=== PATIENT | male | born 1990 | race Caucasian/White ===

== ENCOUNTER 2017-12-12 23:28 | Inpatient (IN) | payer OTHER, MEDICAID ==
[2017-12-13] MEDS: ONDANSETRON 4 MG INJ IV ×3 (00:41→20:55)
[2017-12-13] MEDS: BELLADONNA/PHENOBARBITAL TAB PO (00:41)
[2017-12-13] MEDS: KETOROLAC 15 MG INJ IV (00:42)
[2017-12-13] MEDS: SOD CHLORIDE 0.9% 1,000 ML IV ×4 (00:42→19:08)
[2017-12-13] MEDS: LIDOCAINE/MYLANTA 40 ML BTL PO (00:42)
[2017-12-13 00:58] LABS: ADD MAN DIFF? NO
[2017-12-13 00:59] LABS: BASOPHIL # 0.1 10^3/ul (0.0-0.1); BASOPHILS % 0.3 % (0.0-2.0); EOSINOPHILS # 0.2 10^3/ul (0.0-0.5); EOSINOPHILS % 0.7 % (0.0-7.0); HEMATOCRIT 37.2 % (42.0-52.0); HEMOGLOBIN 11.6 g/dl (14.0-18.0); LYMPHOCYTES # 3.3 10^3/ul (0.8-2.9); LYMPHOCYTES % 14.4 % (15.0-51.0); MEAN CORPUSCULAR HEMOGLOBIN 28.4 pg (29.0-33.0); MEAN CORPUSCULAR HGB CONC 31.2 g/dl (32.0-37.0); MEAN CORPUSCULAR VOLUME 91.2 fl (82.0-101.0); MEAN PLATELET VOLUME 8.6 fl (7.4-10.4); MONOCYTE # 1.2 10^3/ul (0.3-0.9); MONOCYTES % 5.4 % (0.0-11.0); NEUTROPHIL # 18.1 10^3/ul (1.6-7.5); NEUTROPHILS % 78.2 % (39.0-77.0); PLATELET COUNT 845 10^3/UL (140-415); RED BLOOD COUNT 4.08 10^6/ul (4.70-6.10); RED CELL DISTRIBUTION WIDTH 16.5 % (11.5-14.5)
[2017-12-13 00:59] LABS: WHITE BLOOD COUNT 23.2 10^3/ul (4.8-10.8)
[2017-12-13 01:05] LABS: ADD UMIC YES; UR AMORPHOUS CRYSTAL FEW /HPF (NONE SEEN); UR ASCORBIC ACID NEGATIVE (NEGATIVE); UR BILIRUBIN (Dip) NEGATIVE (NEGATIVE); UR BLOOD (Dip) NEGATIVE (NEGATIVE); UR CLARITY CLOUDY (CLEAR); UR COLOR YELLOW (YELLOW); UR GLUCOSE (Dip) NEGATIVE (NEGATIVE); UR KETONES (Dip) NEGATIVE (NEGATIVE); UR LEUKOCYTE ESTERASE (Dip) NEGATIVE Leu/ul (NEGATIVE); UR NITRITE (Dip) NEGATIVE (NEGATIVE); UR RBC 2 /HPF (0-5); UR SPECIFIC GRAVITY (Dip) 1.013 (1.003-1.030); UR TOTAL PROTEIN (Dip) NEGATIVE (NEGATIVE); UR UROBILINOGEN (Dip) NEGATIVE (NEGATIVE); UR WBC 2 /HPF (0-5)
[2017-12-13 01:17] LABS: INR 0.99; PROTIME 13.2 Sec (11.9-14.9)
[2017-12-13 01:23] LABS: ALANINE AMINOTRANSFERASE 433 IU/L (13-69); ALBUMIN 4.1 g/dl (3.3-4.9); ALBUMIN/GLOBULIN RATIO 0.78; ALKALINE PHOSPHATASE 459 IU/L (42-121); ANION GAP 15 (8-16); ASPARTATE AMINO TRANSFERASE 136 IU/L (15-46); BILIRUBIN,INDIRECT 0.1 mg/dl (0-1.1); BILIRUBIN,TOTAL 0.1 mg/dl (0.2-1.3); BLOOD UREA NITROGEN 15 mg/dl (7-20); CALCIUM 11.4 mg/dl (8.4-10.2); CARBON DIOXIDE 27 mmol/L (21-31); CHLORIDE 99 mmol/L (97-110); CREATININE 0.37 mg/dl (0.61-1.24); GLUCOSE 107 mg/dl (70-220); LIPASE 83 U/L (23-300); POTASSIUM 4.3 mmol/L (3.5-5.1); SODIUM 137 mmol/L (135-144); TOTAL PROTEIN 9.3 g/dl (6.1-8.1)
[2017-12-13] MEDS: IBUPROFEN 600 MG TAB PO (01:30)
[2017-12-13 01:36] LABS: TROPONIN-I < 0.012 ng/ml (0.00-0.12)
[2017-12-13 01:36] LABS: LACTIC ACID 2.1 mmol/L (0.5-2.0)
[2017-12-13] MEDS: MUPIROCIN 2% 22 GM OINT TOP (02:25)
[2017-12-13] MEDS: PIPER-TAZO 3.375 GM IV (PMX) 100 ML IVPB ×4 (02:25→19:12)
[2017-12-13 03:07] LABS: LACTIC ACID 1.5 mmol/L (0.5-2.0)
[2017-12-13] MEDS: HYDROmorphONE 1 MG/ML SYG IV ×4 (03:08→23:21)
[2017-12-13] MEDS: VANCOMYCIN 1 GM (PMX) 250 ML IVPB (05:52)
[2017-12-13 06:28] LABS: LACTIC ACID 1.4 mmol/L (0.5-2.0)
[2017-12-13] MEDS ORDERED: VANCOMYCIN IV PER PHARMACY XX (07:00)
[2017-12-13] MEDS ORDERED: NACL 0.9% 3 ML SYG IV (07:00)
[2017-12-13] MEDS ORDERED: morphine 2 MG INJ IV (07:00)
[2017-12-13] MEDS ORDERED: BISACODYL (EC) 5 MG TAB PO (07:00)
[2017-12-13] MEDS ORDERED: DOCUSATE SODIUM 100 MG CAP PO ×2 (07:00→14:30)
[2017-12-13] MEDS ORDERED: ACETAMINOPHEN 325 MG TAB PO (07:00)
[2017-12-13] MEDS: SOD CHLORIDE 0.9% 100 ML (07:16)
[2017-12-13] MEDS: IOHEXOL 300MG/ML 150 ML BTL (07:16)
[2017-12-13 07:45] LABS: ADD MAN DIFF? NO
[2017-12-13] MEDS: SOD CHLORIDE 0.9% 500 ML IV (07:53)
[2017-12-13 07:55] LABS: BASOPHIL # 0.1 10^3/ul (0.0-0.1); BASOPHILS % 0.3 % (0.0-2.0); EOSINOPHILS # 0.3 10^3/ul (0.0-0.5); EOSINOPHILS % 1.8 % (0.0-7.0); HEMATOCRIT 30.7 % (42.0-52.0); HEMOGLOBIN 9.7 g/dl (14.0-18.0); LYMPHOCYTES # 1.9 10^3/ul (0.8-2.9); LYMPHOCYTES % 10.9 % (15.0-51.0); MEAN CORPUSCULAR HEMOGLOBIN 29.3 pg (29.0-33.0); MEAN CORPUSCULAR HGB CONC 31.6 g/dl (32.0-37.0); MEAN CORPUSCULAR VOLUME 92.7 fl (82.0-101.0); MEAN PLATELET VOLUME 8.4 fl (7.4-10.4); MONOCYTE # 1.2 10^3/ul (0.3-0.9); MONOCYTES % 7.2 % (0.0-11.0); NEUTROPHIL # 13.4 10^3/ul (1.6-7.5); NEUTROPHILS % 78.7 % (39.0-77.0); RED BLOOD COUNT 3.31 10^6/ul (4.70-6.10); RED CELL DISTRIBUTION WIDTH 16.3 % (11.5-14.5)
[2017-12-13 07:56] LABS: PLATELET COUNT 700 10^3/UL (140-415)
[2017-12-13 08:21] LABS: ALANINE AMINOTRANSFERASE 273 IU/L (13-69); ALBUMIN/GLOBULIN RATIO 0.78; ALKALINE PHOSPHATASE 308 IU/L (42-121); ANION GAP 12 (8-16); ASPARTATE AMINO TRANSFERASE 79 IU/L (15-46); BLOOD UREA NITROGEN 14 mg/dl (7-20); CALCIUM 9.9 mg/dl (8.4-10.2); CARBON DIOXIDE 24 mmol/L (21-31); CHLORIDE 106 mmol/L (97-110); CHOL/HDL RATIO 5.1 RATIO; CHOLESTEROL 138 mg/dl (100-200); CREATININE 0.36 mg/dl (0.61-1.24); GLUCOSE 83 mg/dl (70-220); HDL CHOLESTEROL 27 mg/dl (30-63); LDL CHOLESTEROL,CALCULATED 98 mg/dl; MAGNESIUM 1.6 mg/dl (1.7-2.5); POTASSIUM 3.9 mmol/L (3.5-5.1); SODIUM 138 mmol/L (135-144); TOTAL PROTEIN 6.8 g/dl (6.1-8.1); TRIGLYCERIDES 65 mg/dl (0-149)
[2017-12-13] MEDS: morphine LIQ (10 MG/5 ML) CUP PO (08:46)
[2017-12-13 09:12] LABS: HEMOGLOBIN A1C 5.1 % (0-5.9)
[2017-12-13] MEDS ORDERED: PIPER-TAZO 3.375 GM IV (PMX) 100 ML IVPB (12:00)
[2017-12-13] MEDS ORDERED: LORAZEPAM 2 MG INJ (12:46)
[2017-12-13] MEDS: LORAZEPAM 2 MG INJ IV (12:49)
[2017-12-13] MEDS: morphine 2 MG INJ IV (15:43)
[2017-12-13] MEDS: VANCOMYCIN 500MG/NS (PMX) 100 ML IVPB (16:01)
[2017-12-13] MEDS: MAGNESIUM SULFATE 2 GM/50 ML 50 ML IVPB (17:15)
[2017-12-13] MEDS: GABAPENTIN 100 MG CAP PO (22:16)
[2017-12-13] MEDS: FERROUS SULFATE (EC) 325 MG TAB PO (22:16)
[2017-12-13] MEDS: BACLOFEN 10 MG TAB PO (22:16)
[2017-12-13] MEDS: FAMOTIDINE 20 MG TAB PO (22:17)
[2017-12-14] MEDS: VANCOMYCIN 500MG/NS (PMX) 100 ML IVPB ×2 (00:19→08:16)
[2017-12-14] MEDS: PIPER-TAZO 3.375 GM IV (PMX) 100 ML IVPB ×5 (00:39→23:53)
[2017-12-14] MEDS: HYDROmorphONE 1 MG/ML SYG IV ×6 (01:20→22:57)
[2017-12-14] MEDS: SOD CHLORIDE 0.9% 1,000 ML IV ×4 (02:44→22:47)
[2017-12-14] MEDS: ONDANSETRON 4 MG INJ IV (04:49)
[2017-12-14 07:50] LABS: VANCOMYCIN,TROUGH 5.6 ug/ml (10.0-20.0)
[2017-12-14] MEDS: FERROUS SULFATE (EC) 325 MG TAB PO ×2 (09:00→20:28)
[2017-12-14] MEDS: FAMOTIDINE 20 MG TAB PO ×2 (09:00→20:28)
[2017-12-14] MEDS: GABAPENTIN 100 MG CAP PO ×3 (09:00→20:28)
[2017-12-14] MEDS: ESCITALOPRAM 10 MG TAB PO (09:00)
[2017-12-14] MEDS: BACLOFEN 10 MG TAB PO ×3 (09:00→20:28)
[2017-12-14 11:44] LABS: ADD MAN DIFF? NO
[2017-12-14 11:49] LABS: WHITE BLOOD COUNT 16.9 10^3/ul (4.8-10.8)
[2017-12-14 11:49] LABS: BASOPHIL # 0.1 10^3/ul (0.0-0.1); BASOPHILS % 0.3 % (0.0-2.0); EOSINOPHILS # 0.6 10^3/ul (0.0-0.5); EOSINOPHILS % 3.7 % (0.0-7.0); HEMATOCRIT 27.5 % (42.0-52.0); HEMOGLOBIN 8.7 g/dl (14.0-18.0); LYMPHOCYTES # 1.8 10^3/ul (0.8-2.9); LYMPHOCYTES % 10.6 % (15.0-51.0); MEAN CORPUSCULAR HEMOGLOBIN 29.2 pg (29.0-33.0); MEAN CORPUSCULAR HGB CONC 31.6 g/dl (32.0-37.0); MEAN CORPUSCULAR VOLUME 92.3 fl (82.0-101.0); MEAN PLATELET VOLUME 8.3 fl (7.4-10.4); MONOCYTES % 6.1 % (0.0-11.0); NEUTROPHIL # 13.3 10^3/ul (1.6-7.5); NEUTROPHILS % 78.7 % (39.0-77.0); PLATELET COUNT 672 10^3/UL (140-415); RED BLOOD COUNT 2.98 10^6/ul (4.70-6.10); RED CELL DISTRIBUTION WIDTH 15.7 % (11.5-14.5)
[2017-12-14 12:21] LABS: ALANINE AMINOTRANSFERASE 195 IU/L (13-69); ALBUMIN/GLOBULIN RATIO 0.73; ALKALINE PHOSPHATASE 281 IU/L (42-121); ANION GAP 12 (8-16); ASPARTATE AMINO TRANSFERASE 44 IU/L (15-46); BLOOD UREA NITROGEN 6 mg/dl (7-20); CARBON DIOXIDE 26 mmol/L (21-31); CHLORIDE 101 mmol/L (97-110); CREATININE 0.35 mg/dl (0.61-1.24); GLUCOSE 107 mg/dl (70-220); MAGNESIUM 1.6 mg/dl (1.7-2.5); PHOSPHORUS 4.6 mg/dl (2.5-4.9); POTASSIUM 3.1 mmol/L (3.5-5.1); SODIUM 136 mmol/L (135-144); TOTAL PROTEIN 7.1 g/dl (6.1-8.1)
[2017-12-14] MEDS: VANCOMYCIN 1 GM 250 ML IVPB ×2 (14:00→20:52)
[2017-12-14] MEDS: SOD CHLORIDE 0.9% 100 ML (14:05)
[2017-12-14] MEDS: IOHEXOL 100 ML (14:05)
[2017-12-14] MEDS: morphine 2 MG INJ IV (20:28)
[2017-12-15] MEDS: morphine 2 MG INJ IV ×3 (01:54→12:38)
[2017-12-15] MEDS: VANCOMYCIN 1 GM 250 ML IVPB ×3 (05:10→23:56)
[2017-12-15] MEDS: PIPER-TAZO 3.375 GM IV (PMX) 100 ML IVPB ×3 (05:10→18:36)
[2017-12-15 08:38] LABS: ADD MAN DIFF? NO
[2017-12-15 08:54] LABS: BASOPHILS % 0.3 % (0.0-2.0); EOSINOPHILS # 0.7 10^3/ul (0.0-0.5); EOSINOPHILS % 4.1 % (0.0-7.0); HEMATOCRIT 28.8 % (42.0-52.0); HEMOGLOBIN 9.1 g/dl (14.0-18.0); LYMPHOCYTES # 1.4 10^3/ul (0.8-2.9); MEAN CORPUSCULAR HEMOGLOBIN 28.9 pg (29.0-33.0); MEAN CORPUSCULAR HGB CONC 31.6 g/dl (32.0-37.0); MEAN CORPUSCULAR VOLUME 91.4 fl (82.0-101.0); MEAN PLATELET VOLUME 8.6 fl (7.4-10.4); MONOCYTE # 1.1 10^3/ul (0.3-0.9); MONOCYTES % 6.7 % (0.0-11.0); NEUTROPHIL # 12.7 10^3/ul (1.6-7.5); NEUTROPHILS % 79.5 % (39.0-77.0); RED BLOOD COUNT 3.15 10^6/ul (4.70-6.10); RED CELL DISTRIBUTION WIDTH 15.7 % (11.5-14.5)
[2017-12-15 09:15] LABS: PLATELET COUNT 715 10^3/UL (140-415)
[2017-12-15 09:23] LABS: ALANINE AMINOTRANSFERASE 152 IU/L (13-69); ALBUMIN 3.1 g/dl (3.3-4.9); ALBUMIN/GLOBULIN RATIO 0.73; ALKALINE PHOSPHATASE 277 IU/L (42-121); ANION GAP 12 (8-16); ASPARTATE AMINO TRANSFERASE 31 IU/L (15-46); BILIRUBIN,INDIRECT 0.1 mg/dl (0-1.1); BILIRUBIN,TOTAL 0.1 mg/dl (0.2-1.3); BLOOD UREA NITROGEN 7 mg/dl (7-20); CALCIUM 10.7 mg/dl (8.4-10.2); CARBON DIOXIDE 29 mmol/L (21-31); CHLORIDE 103 mmol/L (97-110); CREATININE 0.39 mg/dl (0.61-1.24); GLUCOSE 89 mg/dl (70-220); POTASSIUM 3.2 mmol/L (3.5-5.1); SODIUM 141 mmol/L (135-144); TOTAL PROTEIN 7.3 g/dl (6.1-8.1)
[2017-12-15] MEDS: HYDROmorphONE 1 MG/ML SYG IV ×2 (10:13→20:19)
[2017-12-15] MEDS: FERROUS SULFATE (EC) 325 MG TAB PO ×2 (10:14→20:20)
[2017-12-15] MEDS: GABAPENTIN 100 MG CAP PO ×3 (10:15→20:20)
[2017-12-15] MEDS: ESCITALOPRAM 10 MG TAB PO (10:15)
[2017-12-15] MEDS: FAMOTIDINE 20 MG TAB PO ×2 (10:15→20:20)
[2017-12-15] MEDS: BACLOFEN 10 MG TAB PO ×3 (10:15→20:20)
[2017-12-15] MEDS: SOD CHLORIDE 0.9% 1,000 ML IV ×2 (15:30→18:43)
[2017-12-15] MEDS: POTASSIUM CHLORIDE (SR) 20 MEQ TAB PO ×2 (15:34→20:19)
[2017-12-15] MEDS: morphine LIQ (10 MG/5 ML) CUP PO (15:34)
[2017-12-15] MEDS: FLUCONAZOLE 100 MG TAB PO (15:34)
[2017-12-15 22:57] LABS: VANCOMYCIN,TROUGH 13.7 ug/ml (10.0-20.0)
[2017-12-16] MEDS: PIPER-TAZO 3.375 GM IV (PMX) 100 ML IVPB ×3 (00:33→12:08)
[2017-12-16] MEDS: HYDROmorphONE 1 MG/ML SYG IV ×7 (00:35→18:32)
[2017-12-16] MEDS: SOD CHLORIDE 0.9% 1,000 ML IV ×3 (04:17→20:22)
[2017-12-16] MEDS: VANCOMYCIN 1 GM 250 ML IVPB (05:30)
[2017-12-16] MEDS: FAMOTIDINE 20 MG TAB PO ×2 (07:54→20:23)
[2017-12-16] MEDS: FERROUS SULFATE (EC) 325 MG TAB PO ×2 (07:54→20:23)
[2017-12-16] MEDS: FLUCONAZOLE 100 MG TAB PO (07:54)
[2017-12-16] MEDS: BACLOFEN 10 MG TAB PO ×3 (07:54→20:23)
[2017-12-16] MEDS: GABAPENTIN 100 MG CAP PO ×3 (07:54→20:22)
[2017-12-16] MEDS: ESCITALOPRAM 10 MG TAB PO (07:54)
[2017-12-16 09:07] LABS: ADD MAN DIFF? NO
[2017-12-16 09:16] LABS: BASOPHILS % 0.2 % (0.0-2.0); EOSINOPHILS # 0.6 10^3/ul (0.0-0.5); EOSINOPHILS % 3.3 % (0.0-7.0); HEMATOCRIT 28.3 % (42.0-52.0); HEMOGLOBIN 9.1 g/dl (14.0-18.0); LYMPHOCYTES # 2.3 10^3/ul (0.8-2.9); LYMPHOCYTES % 13.7 % (15.0-51.0); MEAN CORPUSCULAR HGB CONC 32.2 g/dl (32.0-37.0); MEAN CORPUSCULAR VOLUME 90.1 fl (82.0-101.0); MEAN PLATELET VOLUME 8.3 fl (7.4-10.4); MONOCYTE # 1.2 10^3/ul (0.3-0.9); MONOCYTES % 7.2 % (0.0-11.0); NEUTROPHIL # 12.5 10^3/ul (1.6-7.5); NEUTROPHILS % 75.1 % (39.0-77.0); PLATELET COUNT 681 10^3/UL (140-415); RED BLOOD COUNT 3.14 10^6/ul (4.70-6.10); RED CELL DISTRIBUTION WIDTH 15.1 % (11.5-14.5)
[2017-12-16 09:16] LABS: WHITE BLOOD COUNT 16.6 10^3/ul (4.8-10.8)
[2017-12-16 09:39] LABS: MAGNESIUM 1.6 mg/dl (1.7-2.5)
[2017-12-16] MEDS: MAGNESIUM SULFATE 2 GM/50 ML 50 ML IVPB (11:15)
[2017-12-16] MEDS: POTASSIUM CHLORIDE 50 ML IVPB ×2 (12:33→14:50)
[2017-12-16] MEDS: LEVOFLOXACIN 500 MG TAB PO (15:49)
[2017-12-16] MEDS: morphine LIQ (10 MG/5 ML) CUP PO (16:54)
[2017-12-16] MEDS: metroNIDAZOLE 500 MG TAB PO (20:28)
[2017-12-16] MEDS: ONDANSETRON 4 MG INJ IV (20:40)
[2017-12-16] MEDS: PANTOPRAZOLE 40 MG INJ IV (21:00)
[2017-12-16] MEDS: LACTOBACILLUS RHAMNOSUS CAP PO (22:13)
[2017-12-17] MEDS: HYDROmorphONE 1 MG/ML SYG IV ×2 (02:00→08:14)
[2017-12-17] MEDS: morphine LIQ (10 MG/5 ML) CUP PO ×4 (04:30→22:21)
[2017-12-17] MEDS: PANTOPRAZOLE 40 MG INJ IV (06:01)
[2017-12-17] MEDS: metroNIDAZOLE 500 MG TAB PO ×3 (06:01→22:26)
[2017-12-17] MEDS: FERROUS SULFATE (EC) 325 MG TAB PO ×2 (08:13→22:26)
[2017-12-17] MEDS: GABAPENTIN 100 MG CAP PO ×3 (08:13→22:26)
[2017-12-17] MEDS: LACTOBACILLUS RHAMNOSUS CAP PO ×2 (08:13→22:26)
[2017-12-17] MEDS: FLUCONAZOLE 100 MG TAB PO (08:13)
[2017-12-17] MEDS: ESCITALOPRAM 10 MG TAB PO (08:14)
[2017-12-17] MEDS: BACLOFEN 10 MG TAB PO ×3 (08:14→22:26)
[2017-12-17 08:43] LABS: ADD MAN DIFF? NO
[2017-12-17 08:47] LABS: BASOPHIL # 0.1 10^3/ul (0.0-0.1); BASOPHILS % 0.3 % (0.0-2.0); EOSINOPHILS # 0.5 10^3/ul (0.0-0.5); HEMATOCRIT 29.6 % (42.0-52.0); HEMOGLOBIN 9.5 g/dl (14.0-18.0); LYMPHOCYTES # 2.6 10^3/ul (0.8-2.9); LYMPHOCYTES % 14.2 % (15.0-51.0); MEAN CORPUSCULAR HEMOGLOBIN 28.9 pg (29.0-33.0); MEAN CORPUSCULAR HGB CONC 32.1 g/dl (32.0-37.0); MEAN PLATELET VOLUME 8.2 fl (7.4-10.4); MONOCYTE # 1.5 10^3/ul (0.3-0.9); MONOCYTES % 8.2 % (0.0-11.0); NEUTROPHIL # 13.3 10^3/ul (1.6-7.5); NEUTROPHILS % 73.8 % (39.0-77.0); RED BLOOD COUNT 3.29 10^6/ul (4.70-6.10); RED CELL DISTRIBUTION WIDTH 15.2 % (11.5-14.5)
[2017-12-17 08:53] LABS: PLATELET COUNT 681 10^3/UL (140-415)
[2017-12-17 09:07] LABS: ANION GAP 13 (8-16); BLOOD UREA NITROGEN 8 mg/dl (7-20); CALCIUM 11.5 mg/dl (8.4-10.2); CARBON DIOXIDE 27 mmol/L (21-31); CHLORIDE 100 mmol/L (97-110); CREATININE 0.38 mg/dl (0.61-1.24); GLUCOSE 98 mg/dl (70-220); MAGNESIUM 1.8 mg/dl (1.7-2.5); POTASSIUM 4.3 mmol/L (3.5-5.1); SODIUM 136 mmol/L (135-144)
[2017-12-17] MEDS: SOD CHLORIDE 0.9% 1,000 ML IV ×2 (10:08→21:29)
[2017-12-17] MEDS: LEVOFLOXACIN 500 MG TAB PO (13:39)
[2017-12-18] MEDS: metroNIDAZOLE 500 MG TAB PO ×3 (05:50→21:45)
[2017-12-18] MEDS: PANTOPRAZOLE 40 MG INJ IV (05:50)
[2017-12-18] MEDS: morphine LIQ (10 MG/5 ML) CUP PO ×4 (05:53→20:46)
[2017-12-18 06:23] LABS: ADD MAN DIFF? NO
[2017-12-18 06:36] LABS: BASOPHIL # 0.1 10^3/ul (0.0-0.1); BASOPHILS % 0.3 % (0.0-2.0); EOSINOPHILS # 0.4 10^3/ul (0.0-0.5); EOSINOPHILS % 2.3 % (0.0-7.0); HEMATOCRIT 31.7 % (42.0-52.0); HEMOGLOBIN 10.1 g/dl (14.0-18.0); LYMPHOCYTES # 2.5 10^3/ul (0.8-2.9); LYMPHOCYTES % 15.3 % (15.0-51.0); MEAN CORPUSCULAR HGB CONC 31.9 g/dl (32.0-37.0); MEAN CORPUSCULAR VOLUME 91.1 fl (82.0-101.0); MEAN PLATELET VOLUME 8.4 fl (7.4-10.4); MONOCYTE # 1.2 10^3/ul (0.3-0.9); MONOCYTES % 7.5 % (0.0-11.0); NEUTROPHIL # 12.2 10^3/ul (1.6-7.5); NEUTROPHILS % 73.7 % (39.0-77.0); RED BLOOD COUNT 3.48 10^6/ul (4.70-6.10); RED CELL DISTRIBUTION WIDTH 15.5 % (11.5-14.5)
[2017-12-18 06:36] LABS: WHITE BLOOD COUNT 16.5 10^3/ul (4.8-10.8)
[2017-12-18 07:21] LABS: PLATELET COUNT 728 10^3/UL (140-415)
[2017-12-18 07:26] LABS: ANION GAP 17 (8-16); BLOOD UREA NITROGEN 8 mg/dl (7-20); CALCIUM 11.4 mg/dl (8.4-10.2); CARBON DIOXIDE 24 mmol/L (21-31); CHLORIDE 104 mmol/L (97-110); CREATININE 0.37 mg/dl (0.61-1.24); GLUCOSE 100 mg/dl (70-220); SODIUM 141 mmol/L (135-144)
[2017-12-18] MEDS: SOD CHLORIDE 0.9% 1,000 ML IV ×2 (09:01→16:44)
[2017-12-18] MEDS: GABAPENTIN 100 MG CAP PO ×3 (09:02→20:47)
[2017-12-18] MEDS: FLUCONAZOLE 100 MG TAB PO (09:02)
[2017-12-18] MEDS: ESCITALOPRAM 10 MG TAB PO (09:02)
[2017-12-18] MEDS: BACLOFEN 10 MG TAB PO ×3 (09:02→20:46)
[2017-12-18] MEDS: LACTOBACILLUS RHAMNOSUS CAP PO ×2 (09:02→21:20)
[2017-12-18] MEDS: FERROUS SULFATE (EC) 325 MG TAB PO ×2 (09:02→20:46)
[2017-12-18] MEDS: ZINC SULFATE 220 MG CAP PO (13:12)
[2017-12-18] MEDS: ASCORBIC ACID 500 MG TAB PO ×2 (13:12→20:46)
[2017-12-18] MEDS: LEVOFLOXACIN 500 MG TAB PO (13:13)
[2017-12-19] MEDS: SOD CHLORIDE 0.9% 1,000 ML IV ×3 (00:29→22:13)
[2017-12-19] MEDS: morphine LIQ (10 MG/5 ML) CUP PO (00:29)
[2017-12-19] MEDS: ONDANSETRON 4 MG INJ IV (02:10)
[2017-12-19 06:26] LABS: ADD MAN DIFF? NO
[2017-12-19 06:32] LABS: WHITE BLOOD COUNT 15.1 10^3/ul (4.8-10.8)
[2017-12-19 06:32] LABS: BASOPHIL # 0.1 10^3/ul (0.0-0.1); BASOPHILS % 0.5 % (0.0-2.0); EOSINOPHILS # 0.4 10^3/ul (0.0-0.5); EOSINOPHILS % 2.9 % (0.0-7.0); HEMATOCRIT 30.2 % (42.0-52.0); HEMOGLOBIN 9.6 g/dl (14.0-18.0); LYMPHOCYTES # 2.5 10^3/ul (0.8-2.9); LYMPHOCYTES % 16.8 % (15.0-51.0); MEAN CORPUSCULAR HEMOGLOBIN 29.2 pg (29.0-33.0); MEAN CORPUSCULAR HGB CONC 31.8 g/dl (32.0-37.0); MEAN CORPUSCULAR VOLUME 91.8 fl (82.0-101.0); MEAN PLATELET VOLUME 8.5 fl (7.4-10.4); MONOCYTE # 1.2 10^3/ul (0.3-0.9); MONOCYTES % 8.1 % (0.0-11.0); NEUTROPHIL # 10.7 10^3/ul (1.6-7.5); NEUTROPHILS % 70.7 % (39.0-77.0); RED BLOOD COUNT 3.29 10^6/ul (4.70-6.10); RED CELL DISTRIBUTION WIDTH 15.5 % (11.5-14.5)
[2017-12-19] MEDS: PANTOPRAZOLE 40 MG INJ IV (06:52)
[2017-12-19] MEDS: metroNIDAZOLE 500 MG TAB PO ×3 (06:52→22:11)
[2017-12-19 07:13] LABS: ANION GAP 16 (8-16); BLOOD UREA NITROGEN 8 mg/dl (7-20); CALCIUM 11.4 mg/dl (8.4-10.2); CARBON DIOXIDE 27 mmol/L (21-31); CHLORIDE 102 mmol/L (97-110); CREATININE 0.36 mg/dl (0.61-1.24); GLUCOSE 95 mg/dl (70-220); POTASSIUM 3.8 mmol/L (3.5-5.1); SODIUM 141 mmol/L (135-144)
[2017-12-19 07:24] LABS: PLATELET COUNT 677 10^3/UL (140-415)
[2017-12-19] MEDS: BACLOFEN 10 MG TAB PO ×3 (09:23→22:12)
[2017-12-19] MEDS: GABAPENTIN 100 MG CAP PO ×3 (09:23→22:12)
[2017-12-19] MEDS: ESCITALOPRAM 10 MG TAB PO (09:23)
[2017-12-19] MEDS: LACTOBACILLUS RHAMNOSUS CAP PO ×2 (09:23→22:12)
[2017-12-19] MEDS: FLUCONAZOLE 100 MG TAB PO (09:23)
[2017-12-19] MEDS: FERROUS SULFATE (EC) 325 MG TAB PO ×2 (09:24→22:12)
[2017-12-19] MEDS: ASCORBIC ACID 500 MG TAB PO ×2 (09:24→22:12)
[2017-12-19] MEDS: ZINC SULFATE 220 MG CAP PO (09:24)
[2017-12-19] MEDS: LEVOFLOXACIN 500 MG TAB PO (13:35)
[2017-12-20] MEDS: morphine LIQ (10 MG/5 ML) CUP PO (04:31)
[2017-12-20] MEDS: metroNIDAZOLE 500 MG TAB PO ×3 (06:37→21:03)
[2017-12-20] MEDS: PANTOPRAZOLE 40 MG INJ IV (06:38)
[2017-12-20] MEDS: ONDANSETRON 4 MG INJ IV (08:42)
[2017-12-20] MEDS: GABAPENTIN 100 MG CAP PO ×3 (08:43→21:04)
[2017-12-20] MEDS: BACLOFEN 10 MG TAB PO ×3 (08:43→21:04)
[2017-12-20] MEDS: ZINC SULFATE 220 MG CAP PO (08:43)
[2017-12-20] MEDS: ESCITALOPRAM 10 MG TAB PO (08:43)
[2017-12-20] MEDS: ASCORBIC ACID 500 MG TAB PO ×2 (08:43→21:04)
[2017-12-20] MEDS: FERROUS SULFATE (EC) 325 MG TAB PO ×2 (08:43→21:04)
[2017-12-20] MEDS: SOD CHLORIDE 0.9% 1,000 ML IV ×2 (08:43→18:44)
[2017-12-20] MEDS: LACTOBACILLUS RHAMNOSUS CAP PO ×2 (08:43→21:03)
[2017-12-20] MEDS: FLUCONAZOLE 100 MG TAB PO (08:43)
[2017-12-20] MEDS: INFLUENZA VIRUS VACCINE 0.5 ML SYG IM* (09:45)
[2017-12-20] MEDS: LEVOFLOXACIN 500 MG TAB PO (13:13)
== END 2017-12-20 21:55 | disposition home or self-care (01) | DRG 564 ==
LOC: MS2 12-18 00:10 → E/R 23:28 → MS4 12-13 03:56 → MS2 12-17 12:46
DX: T87.44 Infection of amputation stump, left lower extremity (principal); A41.9 Sepsis, unspecified organism; R65.20 Severe sepsis without septic shock; B37.89 Other sites of candidiasis; R16.0 Hepatomegaly, not elsewhere classified; N39.0 Urinary tract infection, site not specified; M86.8X6 Other osteomyelitis, lower leg; E83.42 Hypomagnesemia; E88.09 Other disorders of plasma-protein metabolism, not elsewhere classified; D73.89 Other diseases of spleen; D50.0 Iron deficiency anemia secondary to blood loss (chronic); Y83.8 Other surgical procedures as the cause of abnormal reaction of the patient, or of later complication, without mention of misadventure at the time of the procedure; N20.0 Calculus of kidney; K80.20 Calculus of gallbladder without cholecystitis without obstruction; K52.89 Other specified noninfective gastroenteritis and colitis; K52.9 Noninfective gastroenteritis and colitis, unspecified; F32.9 Major depressive disorder, single episode, unspecified; H35.81 Retinal edema; B96.89 Other specified bacterial agents as the cause of diseases classified elsewhere; R74.0 Nonspecific elevation of levels of transaminase and lactic acid dehydrogenase [LDH]; S72.352D Displaced comminuted fracture of shaft of left femur, subsequent encounter for closed fracture with routine healing; S42.102D Fracture of unspecified part of scapula, left shoulder, subsequent encounter for fracture with routine healing; S22.32XD Fracture of one rib, left side, subsequent encounter for fracture with routine healing; V49.9XXD Car occupant (driver) (passenger) injured in unspecified traffic accident, subsequent encounter; Z89.511 Acquired absence of right leg below knee; Z89.202 Acquired absence of left upper limb, unspecified level; Z89.611 Acquired absence of right leg above knee; Z99.3 Dependence on wheelchair; Z89.512 Acquired absence of left leg below knee; Z73.6 Limitation of activities due to disability; Z87.828 Personal history of other (healed) physical injury and trauma
CPT/HCPCS: 36415; 71045; 71275; 73562; 73700; 73718; 74176; 74177; 80048; 80053; 80061; 80202; 81001; 83036; 83605; 83690; 83735; 84100; 84443; 84484; 85025; 85610; 87040; 87045; 87070; 87086; 87177; 87205; 90686; 93306; 96365; 96366; 96367; 96375; 96376; 99291-25